=== PATIENT | female | born 1950 | race Caucasian/White ===

== ENCOUNTER → 2019-05-01 12:19 | Outpatient (CLI) | payer MEDICARE, OTHER, SELFPAY ==
[2019-05-01 13:02] LABS: Add Manual Diff / Slide Review NO; Basophils Absolute Auto 0 /uL (0-100); Basophils Percent Auto 0.6 % (0-2); Eosinophils Absolute Auto 200 /uL (0-450); Eosinophils Percent Auto 3.6 % (2-4); Hematocrit 38.2 % (36-46); Hemoglobin 13.1 g/dL (12.0-16.0); Lymphocytes Absolute Auto 1300 /uL (1100-4500); Mean Corpuscular HGB Conc 34.3 % (30-36); Mean Corpuscular Hemoglobin 30.4 PG (26-34); Mean Corpuscular Volume 88.8 fL (80-100); Monocytes Absolute Auto 400 /uL (0-900); Monocytes Percent Auto 7.2 % (3-14); Neutrophils Absolute Auto 3400 /uL (1500-7000); Neutrophils Percent Auto 63.6 % (50-75); Platelet Count 222 X10^3/uL (150-400); Red Cell Distribution Width 13.3 % (11.6-14.8); White Blood Cell Count 5.3 X10^3/uL (4.5-11.0)
[2019-05-01 13:09] LABS: Appearance Urine UA CLEAR; Bilirubin Urine UA NEGATIVE (NEGATIVE); Color Urine UA YELLOW; Glucose Urine UA NEGATIVE (Negative); Ketones Urine UA NEGATIVE (NEGATIVE); Leukocyte Esterase Urine UA NEGATIVE (NEGATIVE); Nitrite Urine UA NEGATIVE (Negative); Occult Blood Urine UA NEGATIVE (Negative); Protein Urine UA NEGATIVE (Negative); Urobilinogen Urine UA 0.2 E.U./dL (0.2); pH Urine UA 6.5 (4.5-8.0)
[2019-05-01 13:16] LABS: Alanine Aminotransferase 22 IU/L (9-52); Albumin 4.3 g/dL (3.5-5.0); Albumin Globulin Ratio 1.7 (1.0-2.8); Alkaline Phosphatase 53 U/L (38-126); Aspartate Aminotransferase 25 IU/L (14-36); Bilirubin Total 0.4 mg/dL (0.2-1.3); Blood Urea Nitrogen 21 mg/dL (7-17); Calcium 9.1 mg/dL (8.4-10.2); Carbon Dioxide 30 mmol/L (22-32); Chloride 105 mmol/L (98-107); Cholesterol 191 mg/dL (140-199); Estimated Glomerular Filt Rate > 60.0 mL/min (>60); Globulin 2.6 g/dL (1.7-4.1); Glucose 85 mg/dL (80-110); HDL Cholesterol 42 mg/dL (40-60); HEMOLYSIS < 15 (0-50); LDL Cholesterol Calculated 114 mg/dL (<100); Potassium 4.2 mmol/L (3.4-5.1); Sodium 142 mmol/L (137-145); Total Protein 6.9 g/dL (6.3-8.2); Triglycerides 174 mg/dL (35-150)
[2019-05-01 14:47] LABS: Thyroid Stimulating Hormone 2.82 uIU/mL (0.47-4.68)
== END ==
PROVIDERS: PCP Family Medicine; Visit Provider Family Medicine
DX: F41.8 Other specified anxiety disorders (principal); K58.9 Irritable bowel syndrome, unspecified; M54.9 Dorsalgia, unspecified; Z51.81 Encounter for therapeutic drug level monitoring; Z85.3 Personal history of malignant neoplasm of breast
CPT/HCPCS: 36415; 80053; 80061; 81003; 84443; 85025

== ENCOUNTER → 2019-07-21 19:09 | Outpatient (CLI) | payer MEDICARE, OTHER, SELFPAY ==
--- NOTE | 2019-07-21 19:12 | DI.RAD.S_ITS ---
PROCEDURE: XR FOOT LT MIN 3V INDICATIONS: Left foot pain TECHNIQUE: 3 views of the foot were acquired. COMPARISON: None. FINDINGS: Bones: There is an incomplete fracture at the base of the fifth metatarsal. No suspicious bony lesions. Mild osteoarthritic changes in left foot. Soft tissues: No tibiotalar joint effusion. Achilles tendon appears normal. IMPRESSION: Incomplete fifth metatarsal base fracture. Dictated by: Cayla Glass M.D. on 07/22/2019 at 11:26 Approved by: Cayla Glass M.D. on 07/22/2019 at 11:27
== END ==
PROVIDERS: PCP Family Medicine; Visit Provider Family Medicine
DX: M79.672 Pain in left foot (principal); S92.352A Displaced fracture of fifth metatarsal bone, left foot, initial encounter for closed fracture; M19.072 Primary osteoarthritis, left ankle and foot
CPT/HCPCS: 73630

== ENCOUNTER → 2019-12-03 09:44 | Outpatient (CLI) | payer MEDICARE, OTHER, SELFPAY ==
--- NOTE | 2019-12-03 09:50 | DI.MG.S_ITS ---
UNILATERAL RIGHT DIGITAL DIAGNOSTIC MAMMOGRAM 3D/2D POST LUMPECTOMY: 12/03/2019 CLINICAL: Breast lump. Personal history of breast cancer. Comparison is made to exams dated: 03/25/2019 mammogram, 08/27/2018 mammogram, 02/17/2018 mammogram, and 01/09/2017 [facility]ogram - [facility]. The tissue of right breast is predominantly fatty. The right breast has post-operative findings status post partial mastectomy. There are benign dystrophic calcificationsand large rim calcified calcification in the right breast that are not significantly changed. Calcifications are consistent with fat necrosis. No significant masses, calcifications, or other findings are seen in the breast. IMPRESSION: INCOMPLETE: NEEDS ADDITIONAL IMAGING EVALUATION There is no abnormality seen in the right breast to correspond with the area of clinical concern and palpable abnormality indicated by triangular marker at 9 o'clock, however, ultrasound is recommended which is scheduled to immediately follow this examination. This exam was interpreted at Station ID: [id number]. NOTE: For mammograms, a report in lay terms will be sent to the patient. Approximately 15% of breast malignancies will not be visualized mammographically. In the management of a palpable breast mass, a negative mammogram must not discourage biopsy of a clinically suspicious lesion. Electronically Signed By: Edgar English M.D. aty/:12/03/2019 10:59:42 ACR BI-RADS Category 0: Incomplete 3340F
--- NOTE | 2019-12-03 09:50 | DI.US.S_ITS ---
ULTRASOUND OF RIGHT BREAST: 12/03/2019 CLINICAL: Palpable right breast lump. Comparison is made to exams dated: 12/03/2019 mammogram, 12/03/2019 mammogram - [facility], 03/25/2019 mammogram, 08/27/2018 mammogram, and 02/17/2018 mammogram - [facility]. Color flow and real-time ultrasound of the right breast were performed. Burt scale images of the real-time examination were reviewed. There are a couple of wider than tall areas of 3 mm to 5 mm oval masses with circumscribed margins in the right breast inferior lateral quadrant middle depth. These 3 mm to 5 mm oval masses are hypoechoic. These correlate with the palpable area of concern but may or maynot account for size of the area of concdrn. Color flow imaging demonstrates that there is no vascularity present. IMPRESSION: PROBABLY BENIGN The two wider than tall areas of 3 mm to 5 mm oval hypoechoic masses versus complicated cysts in the right breast are probably benign. A follow-up right mammogram and an ultrasound in 6 months is recommended to demonstrate stability. Return sooner if any changes in her symptoms or any clinically suspicious findings. Findings and recommendations were given to the patient during today's visit. This exam was interpreted at Station ID: [id number]. Electronically Signed By: Edgar English M.D. at/:12/03/2019 17:49:19 letter sent: Followup Recommended Ultrasound BI-RADS: 3 Probably benign
== END ==
PROVIDERS: PCP Family Medicine; Referring Provider Physician Assistant; Visit Provider Physician Assistant
DX: R92.8 Other abnormal and inconclusive findings on diagnostic imaging of breast (principal); R92.1 Mammographic calcification found on diagnostic imaging of breast; N61.0 Mastitis without abscess; Z85.3 Personal history of malignant neoplasm of breast
CPT/HCPCS: 76642; 77065; G0279

== ENCOUNTER → 2019-12-23 12:10 | Outpatient (CLI) | payer MEDICARE, OTHER, SELFPAY ==
--- NOTE | 2019-12-23 12:13 | DI.MRI.S_ITS ---
BREAST MRI OF BOTH BREASTS: 12/23/2019 CLINICAL: History of breast cancer. Cellulitis. PROCEDURE: MR BREAST BI WO/W CON INDICATIONS: abnormal mammo/US, history of CA TECHNIQUE: The patient was placed prone in a dedicated breast imaging coil. Precontrast axial STIR and 3D FLASH without fat saturation sequences were obtained. Both before and after bolus injection of contrast, sequential 1-minute axial 3D FLASH with fat saturation sequences for 3 time points, with subtraction images and maximum intensity projections (MIP's) generated. Delayed sagittal FLASH images with fat saturation were also obtained. Computer-aided detection, including computer algorithm analysis of MRI image data for lesion detection and characterization, pharmacokinetic analysis, with further physician review for interpretation, was performed. COMPARISON: [facility], US, US BREAST RT LIMITED, 12/03/2019, 11:02. [facility], , MM DIAGNOSTIC MAMMO UNILAT RT, 12/03/2019, 10:31. Outside Facility, [facility], MM TOMOSYNTHESIS DIAGNOSTIC BI, 03/25/2019, 10:53. Outside Facility, [facility], MM DIAGNOSTIC MAMMO RT2D, 08/27/2018, 9:42. Outside Facility, [facility], MM TOMOSYNTHESIS DIAGNOSTIC BI, 02/17/2018, 8:28. Outside Facility, [facility], MRI BREAST BILATERAL W / WO CONTRAST, 01/08/2016, 8:05. FINDINGS: Image quality: Excellent. There is mild background parenchymal enhancement. Right breast: There is heterogeneous non-mass enhancement in a segmental distribution in the lateral right breast. This measures approximately 4.4 x 3.7 x 1.6 cm, ( and ). This enhancement emanates from the area of fat necrosis in the central breast. The enhancement extends to the skin which is thickened. There is increased T2 signal in this region with a few areas of focal T2 hyperintensity may correspond to the small masses or complicated cysts seen on ultrasound 12/03/2019. This measures 6 mm, (), with questionable corresponding enhancement. A kinetic curve demonstrates rapid initial phase with persistent delayed phase. Additionally, there is focal heterogeneous non-Mass enhancement at the superior medial aspect of the area of fat necrosis at upper inner. This measures approximately 2 x 0.7 x 0.6 cm, (and and ). Large rounded area of isointense T1 and heterogeneous hypointense T2 signal in the central right breast which corresponds to the area of fat necrosis with peripheral calcifications seen on mammogram. There are a few additional foci of enhancement within the periphery of this area of fat necrosis which are less confluent than the above-described lesions. Left breast: No mass or suspicious enhancement demonstrated. Miscellaneous: No enlarged lymph nodes identified. IMPRESSION: SUSPICIOUS OF MALIGNANCY 1. Right breast: Large area of segmental heterogeneous non-Mass enhancement in the lateral right breast corresponding to the site of reported palpable abnormality. Additional smaller area of focal heterogeneous non-mass enhancement in the upper inner breast. These sites are adjacent to the large area of fat necrosis in the central breast are suspicious for recurrent tumor. Infection is also the differential is cellulitis as reported. However, the deep and multicentric nature of the enhancement is concerning for tumor. -Recommend a second look ultrasound for possible ultrasound-guided targeted biopsy or MRI guided biopsy. The skin biopsy could also be considered. 2. Left breast: No mass or suspicious enhancement in the left breast. 3. No enlarged adenopathy. -Given the extent of disease, recommend evaluation of the right axilla with ultrasound. BIRADS 4B. COMMENT: The imaging literature indicates that a negative contrast breast MRI examination has a high sensitivity and a moderate specificity for detecting and excluding invasive carcinomas to a detection threshold of 3-5 mm; nonetheless, appropriate clinical and mammographic follow-up are recommended. MRI is not sensitive for detecting DCIS (ductal carcinoma in situ) and may not detect large invasive neoplasms that show only minimal enhancement such as mucinous carcinoma. If there are suspicious calcifications or clinically worrisome palpable masses, then biopsy should still be considered. Invasive neoplasms can be hidden by co-existent and benign enhancement caused by mastitis, hormone therapy effects, radiation therapy, , and recent biopsy or surgery. False positive examinations can occur in a number of circumstances, including breasts that have recently been subject to invasive procedures and those that contain atypical ductal hyperplasia, hormonally stimulated glandular tissue, fat necrosis, or radial scars. Dictated by: Gopi Rodas M.D. on 12/23/2019 at 13:30 This exam was interpreted at Station ID: [id number]. Electronically Signed By: Gopi Rodas M.D. slc/:12/23/2019 14:43:26 ACR BI-RADS Category 4b: Suspicious abnormality - intermediate suspicion of malignancy 3344F
== END ==
PROVIDERS: PCP Family Medicine; Referring Provider Nurse Practitioner Family; Visit Provider Nurse Practitioner Family
DX: R92.8 Other abnormal and inconclusive findings on diagnostic imaging of breast (principal); N61.0 Mastitis without abscess; N64.1 Fat necrosis of breast; N63.10 Unspecified lump in the right breast, unspecified quadrant; Z85.3 Personal history of malignant neoplasm of breast
CPT/HCPCS: 77049; A9579

== ENCOUNTER → 2020-03-18 09:18 | Outpatient (CLI) | payer MEDICARE, OTHER, SELFPAY ==
[2020-03-19 23:09] LABS: COVID19 Sendout Not Detected (Not Detect)
== END ==
PROVIDERS: PCP Family Medicine; Visit Provider Physician Assistant
DX: Z01.818 Encounter for other preprocedural examination (principal)
CPT/HCPCS: 87635

== ENCOUNTER → 2021-01-29 09:15 | Outpatient (CLI) | payer MEDICARE, OTHER, SELFPAY ==
--- NOTE | 2021-01-29 09:17 | DI.MG.S_ITS ---
BILATERAL DIGITAL DIAGNOSTIC MAMMOGRAM 3D/2D SHORT-TERM FOLLOW-UP POST LUMPECTOMY: 01/29/2021 CLINICAL: Right breast mass. Comparison is made to exams dated: 01/19/2020 mammogram, 01/19/2020 MRI biopsy - [facility], 12/23/2019 breast MRI, 12/03/2019 mammogram - [facility], and 03/25/2019 mammogram - [facility]. There are scattered fibroglandular elements in both breasts. There are benign surgical clips, area of calcified fat necrosis, area of non-calcified fat necrosis, and biopsy clip in the right breast. There also are benign post radiation changes and a surgical clip in the left breast in the posterior depth. No significant masses, calcifications, or other findings are seen in either breast. Specifically, no finding to correspond to the patient's previously seen complicated cysts in the lower outer quadrant. IMPRESSION: INCOMPLETE: NEEDS ADDITIONAL IMAGING EVALUATION Stable mammograms with post surgical and post treatment changes and without suspicious changes. Ultrasound is recommended for full evaluation of the lower outer quadrant which previously contained complicated cysts. This was performed immediately following this exam. This exam was interpreted at Station ID: [id number]. NOTE: For mammograms, a report in lay terms will be sent to the patient. Approximately 15% of breast malignancies will not be visualized mammographically. In the management of a palpable breast mass, a negative mammogram must not discourage biopsy of a clinically suspicious lesion. Electronically Signed By: Elaina lance/:01/29/2021 10:30:44 ACR BI-RADS Category 0: Incomplete 3340F
--- NOTE | 2021-01-29 09:17 | DI.US.S_ITS ---
LIMITED ULTRASOUND OF RIGHT BREAST: 01/29/2021 CLINICAL: Follow-up complicated cysts. Comparison is made to exams dated: 01/29/2021 mammogram - [facility], 01/19/2020 mammogram, 01/11/2020 ultrasound - [facility], 12/23/2019 breast MRI, 12/03/2019 ultrasound, and 12/03/2019 mammogram - [facility]. Real-time ultrasound of the right breast 9 o'clock region was performed. Burt scale images of the real-time examination were reviewed. No significant abnormalities were seen sonographically in the right breast. The small complicated cysts in the right breast seen on previous ultrasound are no longer present. In their place is normal post surgical change, and a partially imaged, known seroma in the central breast. IMPRESSION: NEGATIVE Post surgical changes in the right breast and removal of complicated cysts seen previously. There is no sonographic evidence of malignancy. Return to annual mammogram screening schedule per oncology is recommended. Findings and recommendations were conveyed to the patient at time of exam. This exam was interpreted at Station ID: [id number]. Electronically Signed By: Elaina lance/:01/29/2021 10:53:43 letter sent: Normal Exam Ultrasound BI-RADS: 1 Negative
== END ==
PROVIDERS: PCP Family Medicine; Referring Provider Family Medicine; Visit Provider Family Medicine
DX: R92.8 Other abnormal and inconclusive findings on diagnostic imaging of breast (principal)
CPT/HCPCS: 76642; 77066; G0279

== ENCOUNTER → 2021-09-10 09:44 | Outpatient (CLI) | payer MEDICARE, OTHER, SELFPAY ==
[2021-09-10 11:21] LABS: Add Manual Diff / Slide Review NO; Basophils Absolute Auto 0 /uL (0-100); Basophils Percent Auto 0.6 % (0-2); Eosinophils Absolute Auto 200 /uL (0-450); Eosinophils Percent Auto 3.7 % (2-4); Hematocrit 38.3 % (36-46); Hemoglobin 12.9 g/dL (12.0-16.0); Lymphocytes Absolute Auto 1200 /uL (1100-4500); Lymphocytes Percent Auto 27.2 % (25-40); Mean Corpuscular HGB Conc 33.6 % (30-36); Mean Corpuscular Hemoglobin 29.9 PG (26-34); Monocytes Absolute Auto 300 /uL (0-900); Monocytes Percent Auto 7.9 % (3-14); Neutrophils Absolute Auto 2600 /uL (1500-7000); Neutrophils Percent Auto 60.6 % (50-75); Platelet Count 211 X10^3/uL (150-400); Red Cell Distribution Width 13.1 % (11.6-14.8); White Blood Cell Count 4.3 X10^3/uL (4.5-11.0)
[2021-09-10 12:07] LABS: Alanine Aminotransferase 17 IU/L (<35); Albumin 4.4 g/dL (3.5-5.0); Albumin Globulin Ratio 1.6 (1.0-2.8); Alkaline Phosphatase 52 U/L (38-126); Aspartate Aminotransferase 33 IU/L (14-36); BUN Creatinine Ratio 27.9 (6-22); Bilirubin Total 0.4 mg/dL (0.2-1.3); Blood Urea Nitrogen 19 mg/dL (7-17); Calcium 9.1 mg/dL (8.4-10.2); Carbon Dioxide 31 mmol/L (22-32); Chloride 101 mmol/L (98-107); Cholesterol 187 mg/dL (140-199); Estimated Glomerular Filt Rate > 60.0 mL/min (>60); Globulin 2.8 g/dL (1.7-4.1); Glucose 85 mg/dL (80-110); HDL Cholesterol 49 mg/dL (40-60); HEMOLYSIS < 15 (0-50); LDL Cholesterol Calculated 120 mg/dL (<100); Potassium 4.2 mmol/L (3.4-5.1); Sodium 138 mmol/L (137-145); Total Protein 7.2 g/dL (6.3-8.2); Triglycerides 89 mg/dL (35-150)
[2021-09-10 12:33] LABS: TSH w/ Reflex to FT4 2.64 uIU/mL (0.47-4.68)
== END ==
PROVIDERS: PCP Family Medicine; Referring Provider Family Medicine; Visit Provider Family Medicine
DX: M85.851 Other specified disorders of bone density and structure, right thigh (principal); Z78.0 Asymptomatic menopausal state; E78.5 Hyperlipidemia, unspecified; F32.A Depression, unspecified; Z85.3 Personal history of malignant neoplasm of breast; Z82.62 Family history of osteoporosis
CPT/HCPCS: 36415; 77080; 80053; 80061; 84443; 85025

== ENCOUNTER → 2022-02-12 13:24 | Outpatient (CLI) | payer MEDICARE, OTHER, SELFPAY ==
--- NOTE | 2022-02-12 | DI.MG.S_ITS ---
BILATERAL DIGITAL SCREENING MAMMOGRAM 3D/2D WITH CAD: 02/12/2022 CLINICAL: Routine screening, bilateral history of breast cancer. Family history of breast cancer. Comparison is made to exams dated: 01/29/2021 ultrasound, 01/29/2021 mammogram - [facility], 01/19/2020 mammogram, and 01/11/2020 ultrasound - [facility]. There are scattered fibroglandular elements in both breasts. Current study was also evaluated with a Computer Aided Detection (CAD) system. There are benign calcifications in the right breast. There also are benign post operative findings in both breasts. No significant masses, calcifications, or other findings are seen in either breast. There has been no significant interval change. IMPRESSION: BENIGN There is no mammographic evidence of malignancy. A 1 year screening mammogram is recommended. This exam was interpreted at Station ID: [id number]. NOTE: For mammograms, a report in lay terms will be sent to the patient. Approximately 15% of breast malignancies will not be visualized mammographically. In the management of a palpable breast mass, a negative mammogram must not discourage biopsy of a clinically suspicious lesion. Electronically Signed By: rBina peñaloza/rigo:02/12/2022 14:25:37 letter sent: Normal Exam ACR BI-RADS Category 2: Benign Finding(s) 3342F
== END ==
PROVIDERS: PCP Family Medicine; Referring Provider Internal Medicine Hematology & Oncology; Visit Provider Internal Medicine Hematology & Oncology
DX: Z12.31 Encounter for screening mammogram for malignant neoplasm of breast (principal); Z85.3 Personal history of malignant neoplasm of breast; Z80.3 Family history of malignant neoplasm of breast
CPT/HCPCS: 77063; 77067

== ENCOUNTER → 2022-03-07 10:41 | Outpatient (CLI) | payer MEDICARE, OTHER, SELFPAY ==
--- NOTE | 2022-03-07 10:43 | DI.US.S_ITS ---
LIMITED ULTRASOUND OF RIGHT BREAST AND AXILLA: 03/07/2022 CLINICAL: Palpable right breast lump. Comparison is made to exams dated: 02/12/2022 mammogram, 01/29/2021 ultrasound, 01/29/2021 mammogram - [facility], 01/19/2020 MRI biopsy, 01/11/2020 ultrasound - [facility], and 12/23/2019 breast MRI - [facility]. Color flow ultrasound of the right breast 11 o'clock, and axilla regions was performed. Burt scale images of the real-time examination were reviewed. There is a benign oval cyst in the right breast at 11 o'clock anterior depth. This oval cyst displays posterior acoustic enhancement. This abnormality is not significantly changed and correlates as palpated and with mammography findings. The cyst demonstrates a layering fluid-fluid level. Avascular nodularity is seen along the margins of the cyst, which appears stable when compared to prior ultrasound from 02/25/2020 and MR from 01/19/2020. No significant abnormalities were seen sonographically in the right axilla. IMPRESSION: BENIGN There is no sonographic evidence of malignancy. The oval cyst in the right breast is consistent with an oil cyst and is benign. Return to annual mammogram screening schedule is recommended. Future imaging is recommended as follows: 02/13/2023 screening mammogram. This exam was interpreted at Station ID: [id number]. Electronically Signed By: Grant montiel/rigo:03/07/2022 12:00:19 letter sent: Clinical Evaluation Ultrasound BI-RADS: 2 Benign
== END ==
PROVIDERS: PCP Family Medicine; Referring Provider Internal Medicine Hematology & Oncology; Visit Provider Internal Medicine Hematology & Oncology
DX: N60.01 Solitary cyst of right breast; N63.20 Unspecified lump in the left breast, unspecified quadrant; Z85.3 Personal history of malignant neoplasm of breast; Z86.000 Personal history of in-situ neoplasm of breast
CPT/HCPCS: 76642

== ENCOUNTER → 2023-02-13 13:15 | Outpatient (CLI) | payer MEDICARE, OTHER, SELFPAY ==
--- NOTE | 2023-02-13 13:16 | DI.MG.S_ITS ---
BILATERAL DIGITAL SCREENING MAMMOGRAM 3D/2D WITH CAD POST LUMPECTOMY: 02/13/2023 CLINICAL: Routine screening. Bilateral Breast Cancer. Family history of breast cancer. Comparison is made to exams dated: 02/12/2022 mammogram, 01/29/2021 mammogram, 12/23/2019 breast MRI - [facility], and 03/25/2019 mammogram - [facility]. There are scattered areas of fibroglandular density in both breasts (category b / 25%-50% glandular tissue). Current study was also evaluated with a Computer Aided Detection (CAD) system. There are benign calcifications in the right breast. There also are benign post operative findings in both breasts. No significant masses, calcifications, or other findings are seen in either breast. There has been no significant interval change. IMPRESSION: BENIGN There is no mammographic evidence of malignancy. A 1 year screening mammogram is recommended. This exam was interpreted at Station ID: [id number]. NOTE: For mammograms, a report in lay terms will be sent to the patient. Approximately 15% of breast malignancies will not be visualized mammographically. In the management of a palpable breast mass, a negative mammogram must not discourage biopsy of a clinically suspicious lesion. Electronically Signed By: Gopi hutchison/rigo:02/13/2023 15:05:54 copy to: GLOIRA ALLEN letter sent: Normal Exam ACR BI-RADS Category 2: Benign Finding(s) 3342F
== END ==
PROVIDERS: PCP Family Medicine; Referring Provider Internal Medicine Hematology & Oncology; Visit Provider Internal Medicine Hematology & Oncology
DX: Z12.31 Encounter for screening mammogram for malignant neoplasm of breast (principal); Z85.3 Personal history of malignant neoplasm of breast; Z80.3 Family history of malignant neoplasm of breast
CPT/HCPCS: 77063; 77067

== ENCOUNTER → 2024-03-04 08:54 | Outpatient (CLI) | payer MEDICARE, OTHER, SELFPAY ==
--- NOTE | 2024-03-04 | DI.MG.S_ITS ---
BILATERAL DIGITAL SCREENING MAMMOGRAM 3D/2D WITH CAD: 03/04/2024 CLINICAL: Routine screening. Personal history of right breast cancer. Family history of breast cancer. Comparison is made to exams dated: 02/13/2023 mammogram, 02/12/2022 mammogram, and 01/29/2021 mammogram - [facility]. There are scattered areas of fibroglandular density in both breasts (category b / 25%-50% glandular tissue). Current study was also evaluated with a Computer Aided Detection (CAD) system. There are benign calcifications in the right breast. There also are benign post operative findings in both breasts. No significant masses, calcifications, or other findings are seen in either breast. There has been no significant interval change. IMPRESSION: BENIGN There is no mammographic evidence of malignancy. A 1 year screening mammogram is recommended. This exam was interpreted at Station ID: [id number]. NOTE: For mammograms, a report in lay terms will be sent to the patient. Approximately 15% of breast malignancies will not be visualized mammographically. In the management of a palpable breast mass, a negative mammogram must not discourage biopsy of a clinically suspicious lesion. Electronically Signed By: Elaina lance/rigo:03/04/2024 18:44:00 copy to: GLORIA ALLEN letter sent: Normal Exam ACR BI-RADS Category 2: Benign Finding(s) 3342F
== END ==
PROVIDERS: PCP Family Medicine; Referring Provider Family Medicine; Visit Provider Family Medicine
DX: Z12.31 Encounter for screening mammogram for malignant neoplasm of breast (principal); Z85.3 Personal history of malignant neoplasm of breast; Z80.3 Family history of malignant neoplasm of breast; R92.323 Mammographic fibroglandular density, bilateral breasts
CPT/HCPCS: 77063; 77067

== ENCOUNTER → 2024-05-10 09:28 | Outpatient (CLI) | payer MEDICARE, OTHER, SELFPAY ==
[2024-05-11 12:10] LABS: Fecal Immunochemical Test Negative (Negative)
== END ==
PROVIDERS: PCP Family Medicine; Referring Provider Family Medicine; Visit Provider Family Medicine
DX: Z12.11 Encounter for screening for malignant neoplasm of colon (principal)
CPT/HCPCS: 82274

== ENCOUNTER → 2025-03-11 13:50 | Outpatient (CLI) | payer MEDICARE, OTHER, SELFPAY ==
--- NOTE | 2025-03-11 13:51 | DI.MG.S_ITS ---
MM screening mammo BI: 03/11/2025. BI-RADS: 2 CLINICAL: 74-year old female for bilateral screening mammogram. No Tyrer-Cuzick risk score calculation due to the patient's personal history of breast cancer. Patient reports a history of bilateral breast carcinoma diagnosed at age 65. Status-post bilateral lumpectomies with radiation therapy. Current reported family history of breast cancer: sister. The patient had prior bilateral breast biopsies. The patient is status-post reduction mammoplasty. PRIOR EXAMS 03/04/2024, 02/13/2023, 03/07/2022, 02/12/2022, 01/29/2021, 01/19/2020, 01/11/2020, 12/23/2019, 12/03/2019. MAMMOGRAPHY TECHNIQUE: 2D and 3D (tomosynthesis) digital mammographic views obtained, with additional images as needed for full coverage. Current study was also evaluated with a Computer Aided Detection (CAD) system. DENSITY B. There are scattered areas of fibroglandular density. MAMMOGRAPHY FINDINGS Bilateral: Surgical clips present. Benign-appearing post-surgical changes and calcifications noted. There are no suspicious masses, calcifications, or other findings in the breast. IMPRESSION: * No evidence of malignancy with benign findings. RECOMMENDATIONS Bilateral * Annual screening mammography. OVERALL ASSESSMENT CATEGORY BI-RADS-2: Benign. The [employer] recommends annual screening mammography beginning at age 40 for women with average risk of breast cancer. ELECTRONICALLY SIGNED: Edgar English M.D. on 03/11/2025 at 05:41:34 PM PT Interpreting Station ID: [id number]
== END ==
PROVIDERS: PCP Family Medicine; Referring Provider Family Medicine; Visit Provider Family Medicine
DX: Z12.31 Encounter for screening mammogram for malignant neoplasm of breast (principal)
CPT/HCPCS: 77063; 77067

== ENCOUNTER → 2025-05-11 10:43 | Outpatient (CLI) | payer MEDICARE, OTHER, SELFPAY ==
[2025-05-11 12:15] LABS: Alanine Aminotransferase 17 IU/L (<35); Albumin 4.7 g/dL (3.5-5.0); Albumin Globulin Ratio 1.7 (1.0-2.8); Alkaline Phosphatase 64 U/L (38-126); Blood Urea Nitrogen 22 mg/dL (7-17); Calcium 9.4 mg/dL (8.4-10.2); Carbon Dioxide 27 mmol/L (22-32); Chloride 103 mmol/L (98-107); Estimated Glomerular Filt Rate > 60 mL/min (>60); Globulin 2.8 g/dL (1.7-4.1); Glucose 92 mg/dL (70-99); HEMOLYSIS < 15 (0-50); Potassium 4.8 mmol/L (3.4-5.1); Sodium 139 mmol/L (137-145); Total Protein 7.5 g/dL (6.3-8.2)
== END ==
PROVIDERS: PCP Family Medicine; Referring Provider Family Medicine; Visit Provider Family Medicine
DX: F41.8 Other specified anxiety disorders (principal)
CPT/HCPCS: 36415; 80053